=== PATIENT | female | born 1985 ===

== ENCOUNTER 2018-09-26 11:21 | Emergency (ER) | payer OTHER ==
[2018-09-26 13:24] VITALS: RESP 16; O2SAT 97
--- NOTE | 2018-09-26 16:08 | ED PDOC ---
HPI: Influenza Time Seen by Provider: 09/26/18 13:57 Chief Complaint: Cough, Cold, Congestion Chief Complaint (Provider): Cough, Cold, Congestion History Per: Patient Exam Limitations: no limitations Onset/Duration Of Symptoms: Days (x3) Additional complaint(s):: Patient is a 33 y/o female with no significant PMHx who presents to the ED for evaluation of cough with white sputum, myalgia, and sore throat, onset three days ago. The patient at first felt unwell and as of last night felt like he was developing a fever and night sweats. Patient reports the sore throat began after coughing. Patient admits he is able to swallow but has decreased appetite. Of note, patient has been taking Advil Cold and Flu which he last took at 8:00 this morning. PCP: None Provided Past Medical History Reviewed: Historical Data, Nursing Documentation, Vital Signs Vital Signs: Last Vital Signs Temp 99.2 F 09/26/18 12:50 Pulse 95 H 09/26/18 12:50 Resp 16 09/26/18 12:50 BP 154/98 H 09/26/18 12:50 Pulse Ox 97 09/26/18 12:50 - Medical History PMH: No Chronic Diseases - Surgical History Surgical History: No Surg Hx - Family History Family History: States: Unknown Family Hx - Home Medications Home Medications: Ambulatory Orders Medication Instructions Recorded Acetaminophen [Tylenol] 650 mg PO Q6 PRN #5 capsule 09/26/18 Ibuprofen [Motrin Tab] 600 mg PO Q6 PRN 5 Days tab 09/26/18 Oseltamivir Phosphate [Tamiflu] 75 mg PO BID 5 Days capsule 09/26/18 - Allergies Allergies/Adverse Reactions: Allergies Allergy/AdvReac Type Severity Reaction Status Date / Time No Known Allergies Allergy Verified 09/26/18 12:50 Review of Systems ROS Statement: Except As Marked, All Systems Reviewed And Found Negative Constitutional: Positive for: Fever (Subjective), Sweats, Other (Myalgia, Feeling Unwell) ENT: Positive for: Throat Pain (Sore) Respiratory: Positive for: Cough, Sputum (White) Gastrointestinal: Positive for: Vomiting (Post-Tussive) Physical Exam - Reviewed Nursing Documentation Reviewed: Yes Vital Signs Reviewed: Yes - Physical Exam Appears: Positive for: No Acute Distress Head Exam: Positive for: ATRAUMATIC, NORMAL INSPECTION, NORMOCEPHALIC Skin: Positive for: Normal Color Eye Exam: Positive for: Normal appearance ENT: Positive for: Normal ENT Inspection, Pharyngeal Erythema. Negative for: Tonsillar Exudate, Tonsillar Swelling Neck: Positive for: Normal Cardiovascular/Chest: Positive for: Regular Rate, Rhythm Respiratory: Positive for: Normal Breath Sounds Gastrointestinal/Abdominal: Positive for: Normal Exam Extremity: Positive for: Normal ROM Neurologic/Psych: Positive for: Alert, Oriented Medical Decision Making Medical Decision Making: Time: 1544 Plan: Influenza A B Rapid Step Group A Antigen Time: 1729 Patient is positive for influenza B. Prescribed Tamiflu 75 PO x1. Scribe Attestation: Documented by Umesh Ring, acting as a scribe for Marleny SPENCER. Provider Scribe Attestation: All medical record entries made by the Scribe were at my direction and personally dictated by me. I have reviewed the chart and agree that the record accurately reflects my personal performance of the history, physical exam, medical decision making, and the department course for this patient. I have also personally directed, reviewed, and agree with the discharge instructions and disposition. - ECG O2 Sat by Pulse Oximetry: 97 (RA) Pulse Ox Interpretation: Normal Disposition - Clinical Impression Clinical Impression: Influenza B - Disposition Referrals: Margarito Romoe MD [Medical Doctor] - Condition: STABLE Additional Instructions: Complete full course of Tamiflu as prescribed. This will decrease your symptoms but will not cure the virus. Return to ER if you develop shortness of breath or inability to eat. Prescriptions: Acetaminophen [Tylenol] 650 mg PO Q6 PRN #5 capsule PRN Reason: Fever >100.4 F Ibuprofen [Motrin Tab] 600 mg PO Q6 PRN 5 Days tab PRN Reason: Pain, Moderate (4-7) Oseltamivir Phosphate [Tamiflu] 75 mg PO BID 5 Days capsule Forms: [employer] ([place] Islander) Print Language: [place]
[2018-09-26 18:04] VITALS: BP 140/90; PULSE 91; TEMP 98.7
== END 2018-09-26 18:12 | disposition home or self-care (01) ==
LOC: H.ER 11:21
DX: J10.1 Influenza due to other identified influenza virus with other respiratory manifestations (principal)